=== PATIENT | female | born 1990 | race Caucasian/White ===

== ENCOUNTER 2017-03-09 21:39 | Emergency (ER) | payer BC ==
[2017-03-09 22:03] LABS: URINE BILIRUBIN NEGATIVE (NEG); URINE BLOOD NEGATIVE (NEG); URINE GLUCOSE (UA) NEGATIVE (NEG); URINE KETONE NEGATIVE (NEG); URINE LEUKOCYTE ESTERASE NEGATIVE (NEG); URINE NITRITE NEGATIVE (NEG); URINE PROTEIN MODERATE (NEG); URINE SPECIFIC GRAVITY 1.025 (1.003-1.030)
[2017-03-09 22:14] LABS: URINE APPEARANCE HAZY; URINE COLOR YELLOW
[2017-03-09 22:16] LABS: URINE RBC 0 /[HPF] (0-5); URINE WBC 0-3 /[HPF] (0-5)
[2017-03-09 22:17] LABS: URINE AMORPHOUS 1+; URINE BACTERIA 1+; URINE MUCUS 3+
[2017-03-09 23:29] LABS: BASO ABSOLUTE COUNT 0.1 tho/cmm (0.0-0.2); EOS % 1.8 % (0-7); EOSINOPHIL ABSOLUTE COUNT 0.1 tho/cmm (0.0-0.7); HCT-HEMATOCRIT 40.3 % (34.0-49.0); HGB-HEMOGLOBIN 14.1 gm/dl (12.0-15.5); IMMATURE GRANULOCYTES ABSOLUTE 0.02 tho/cmm (0-0.03); IMMATURE GRANULOCYTES PERCENT 0.3 % (0-0.3); LYMPH % 46.4 % (20-45); LYMPH ABSOLUTE COUNT 2.9 tho/cmm (0.8-4.5); MCH (MEAN CORPUSCULAR HGB) 31.7 pg (28.0-32.0); MCV (MEAN CELL VOLUME) 90.6 fl (82.0-96.0); MEAN PLATELET VOLUME 10.1 cmc (9.4-12.4); MONO % 12.3 % (0-12); MONOCYTE ABSOLUTE COUNT 0.8 tho/cmm (0.0-1.2); NEUTROPHIL ABSOLUTE COUNT 2.4 tho/cmm (1.6-8.0); NEUTROPHIL-AUTOMATED 2.4 tho/cmm (1.6-8.0); NEUTROPHILS % 38.2 % (40-80); PLATELET COUNT 170 tho/cmm (150-450); RED BLOOD COUNT 4.45 mil/cmm (4.00-5.20); RED CELL DISTRIBUTION WIDTH 12.5 % (12.4-16.4); WHITE BLOOD COUNT 6.3 tho/cmm (4.0-10.0)
[2017-03-09 23:39] LABS: ANION GAP 12 mmol/L (0-20); BLOOD UREA NITROGEN 12 mg/dl (6-24); CALCIUM 8.6 mg/dl (8.5-10.5); CARBON DIOXIDE-VENOUS 26 mmol/L (22-32); CHLORIDE 106 mmol/l (96-110); CREATININE 0.72 mg/dl (0.50-1.10); GLUCOSE 88 mg/dL (70-110); SODIUM 140 mmol/L (135-145); eGFR VALUE FOR BLACK >90 mL/Min
[2017-03-09 23:45] LABS: POTASSIUM 4.2 mmol/L (3.7-5.1)
[2017-03-10] MEDS ORDERED: FLAGYL500 M1 PO (01:48)
== END 2017-03-10 02:15 ==
LOC: EDMED 21:39
PROVIDERS: Emergency Medicine
DX: N83.201 Unspecified ovarian cyst, right side (principal); N76.0 Acute vaginitis
CPT/HCPCS: J0696; J1885; J7030